=== PATIENT | male | born 1985 | race Caucasian/White ===

== ENCOUNTER → 2021-07-28 | Outpatient (CLI) | payer OTHER, MEDICAID, SELFPAY ==
--- NOTE | 2021-07-28 14:00 | VAS_PTH ---
PATIENT: SHELTON LIU [facility] U#:[id number] AGE/SX: 36/M ROOM: RE07/28/[address]: Dr. Jerardo Fam MD : 1985 BED: DIS: 07/28/2021 SPEC #: [id number] RECD: 07/28/21 15:00 STATUS: EKTA RESofi #: [id number] FELICIA: 07/28/21 14:[address]: Jerardo Fam DEPT: SURGICAL PATHOLOGY RECD BY: Ivanna Kendall ENTERED: 08/01/21 06:40 SP TYPE: VAS OTHR DR: Maru Primary Care Phys Tissues: A - Vas deferens, NOS B - Vas deferens, NOS Procedures: Surgery Specimen Level II HEADER OPERATION: Bilateral partial vasectomy PRE-OP DIAGNOSIS: Sterilization TISSUE SUBMITTED: A ? Left vas deferens, B ? Right vas deferens MICROSCOPIC DIAGNOSIS A. Left vas deferens, segmental vasectomy: Complete cross-section of vas deferens with no pathologic change. B. Right vas deferens, segmental vasectomy: Complete cross-section of vas deferens with no pathologic change. AM:daren 08/02/2021 MICROSCOPIC DESCRIPTION Slides are reviewed. GROSS DESCRIPTION A - Received is one container designated left vas deferens. The specimen consists of a cylindrical segment of pink-beth soft tissue measuring 0.6 cm in length and 0.2 cm in maximum diameter. The specimen is serially sectioned and totally submitted in one cassette. B - Received is one container designated right vas deferens. The specimen consists of a cylindrical segment of pink-beth soft tissue measuring 0.8 cm in length and 0.2 cm in maximum diameter. The specimen is serially sectioned and totally submitted in one cassette. / AM:daren 08/01/2021 TC:4 CPT: 79287 x2
== END | disposition home or self-care (01) ==
LOC: LABSPEC 15:26
PROVIDERS: Referring Provider Surgery; Visit Provider Surgery
DX: Z30.2 Encounter for sterilization (principal)
CPT/HCPCS: 88302

== ENCOUNTER 2021-08-26 13:22 | Emergency (ER) | payer MEDICAID, OTHER, SELFPAY ==
[2021-08-26 13:24] VITALS: PULSE 105; RESP 18; TEMP 36.8; O2SAT 98; BMI 26.9
[2021-08-26] MEDS: Diphth,Pertuss(Acell),Tet Vac 0.5 ML Vial IM (13:50)
[2021-08-26 13:51] LABS: Absolute Neutrophil Count 3.7 X10^3/uL (2.0-7.7); Basophil# 0.02 X10^3/uL; Basophil% 0.3 % (0-1); Eosinophils% 1.5 % (0-5); Hematocrit 43.4 % (40-54); Hemoglobin 14.3 g/dL (13.0-16.5); Lymphocyte % 35.3 % (19-41); Mean Corp Hgb Conc 32.9 g/dL (32-36); Mean Corpuscular Hgb 29.9 pg (27.0-32.0); Mean Corpuscular Volume 90.6 fL (80-94); Mean Platelet Vol. 10.4 fl (6.2-12.0); Monocyte# 0.58 X10^3/uL; Monocyte% 8.5 % (0-10); NRBC Flagged by Analyzer 0 % (0-5); Neutrophil # 3.65 X10^3/uL (2.7-7.7); Neutrophil % 53.8 % (47-70); Platelet Count 248 K/mm3 (150-450); RBC Distribution Width CV 12.4 % (11.6-14.6); RBC Distribution Width SD 40.9 fl (35.1-43.9); Red Blood Count 4.79 M/mm3 (4.6-6.2); White Blood Count 6.8 K/mm3 (4.4-11.0)
[2021-08-26] MEDS: HYDROmorphone 1 MG/ML Syringe IV (13:53)
[2021-08-26 14:00] LABS: International Normalized Ratio 1.2; Prothrombin Time (Protime)PT. 14.4 SECONDS (11.7-14.9)
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
[2021-08-26 14:01] LABS: Partial Thromboplast Time 28.1 Seconds (24.1-36.2)
[2021-08-26 14:08] LABS: ALB/GLOB Ratio 1.2 RATIO (0.9-2.4); AST(SGOT) 22 U/L (15-37); Alanine Aminotransfer ALT/SGPT 28 U/L (16-61); Albumin, Serum 3.7 g/dL (3.2-5.0); Alkaline Phosphatase 51 U/L (45-117); Anion Gap 7 (5-15); BUN 17 mg/dL (7-18); BUN/Creat Ratio 13.5 RATIO (10-20); Calcium,Total 8.3 mg/dL (8.5-10.1); Chloride 109 mmol/L (98-107); Creatinine, Serum 1.26 mg/dL (0.70-1.30); EST Glomerular Filtration Rate 69 mL/min (>60); Est Glom Filt Rate - Afr Amer 84 mL/min (>60); Estimated Creatinine Clearance 93.36 ml/min; Glucose 140 mg/dL (74-106); Potassium 4.1 mmol/L (3.5-5.1); Protein, Total 6.7 g/dL (6.4-8.2); Sodium Level 141 mmol/L (136-145)
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
[2021-08-26 14:14] LABS: Lactic Acid 1.8 mmol/L (0.4-1.9)
--- NOTE | 2021-08-26 14:14 | NURSING ---
TALKED WITH [facility]. ETA OF 45 MINUTES. APPROXIMATELY AT 1455.
[2021-08-26 15:17] VITALS: PULSE 105; RESP 11; O2SAT 99
--- NOTE | 2021-08-26 15:18 | ED.RN ---
Sepsis screen unable to be completed due to no blood pressure taken. Patient has little on all 4 extremities.
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
== END 2021-08-26 15:20 | disposition short-term general hospital (02) ==
LOC: ED 13:45
PROVIDERS: Emergency Provider Emergency Medicine; Visit Provider Emergency Medicine
DX: T20.00XA Burn of unspecified degree of head, face, and neck, unspecified site, initial encounter (principal); R00.0 Tachycardia, unspecified; X58.XXXA Exposure to other specified factors, initial encounter
CPT/HCPCS: 71046; 80053; 83605; 85025; 85610; 85730; 90715; 96374; 99285; J7030

== ENCOUNTER → 2022-06-29 | Outpatient (CLI) | payer OTHER, MEDICAID, SELFPAY ==
[2022-06-29 10:00] LABS: Semen Analysis Post Vas ABSENT
[2022-07-03 09:51] LABS: Pathologist Review Reviewed
== END | disposition home or self-care (01) ==
PROVIDERS: Referring Provider Surgery; Visit Provider Surgery
DX: Z30.2 Encounter for sterilization (principal)
CPT/HCPCS: 89321